=== PATIENT | female | born 1945 | race African-American/Black ===

== ENCOUNTER 2020-01-08 11:22 | Emergency (ER) | payer MEDICARE ==
[~2020-01-08] VITALS: Ht 167.6 cm; Wt 104.3 kg
--- NOTE | 2020-01-08 11:55 | Emergency Department Note ---
History of Present Illnes History of Present Illness Chief Complaint: General Medicine Complaints History of Present Illness This is a 74 year old female, who denies any significant past medical history, who presents with a 6-8 week history of a rash of the anterior aspect of the left lower extremity, above the ankle, that is pruritic, weeping, and seems to be spreading. This is the first medical care that patient has sought for this rash. She does not have a PCP. She has been using triple antibiotic ointment on the rash, and "just keeping it clean and dry." She denies any fever, chills, nausea, or vomiting. 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: No Onset (how long ago): week(s) (8) Location: LLE Quality: pruritic, painful Radiation: Reports non-radiation Severity: moderate Onset quality: gradual Duration (how long): week(s) (8) Timing of current episode: constant Progression: worsening (seems to be spreading) Chronicity: new Context: Denies recent illness, Denies new medications Relieving factors: none Exacerbating factors: none Associated symptoms: Denies fever/chills, Denies nausea/vomiting Treatments prior to arrival: other (OTC antibiotic ointment) Past Medical/Family History Physician Review I have reviewed the patient's past medical and family history. Any updates have been documented here. Past Medical History Recent Fever: No Clinical Suspicion of Infectio: Yes (LLE skin infection;) Past Medical History: None (Pt did not want to provide ANY PMH, "I'm only here for my rash, and don't want treatment for anything else.") Past Surgical History: None Social History Smoking Cessation: Never Smoker Alcohol Use: None Any Illegal Drug Use: No TB Exposure/Symptoms: No Physically hurt or threatened: No Family History Family history of heart diseas: No Other Any Pre-Existing Lines (PICC,: No Is patient up to date on immun: No Review of Systems Review of Systems Constitutional: Denies chills, Denies fever EENTM: Reports no symptoms Cardiovascular: Reports no symptoms Respiratory: Reports no symptoms Gastrointestinal: Reports no symptoms Musculoskeletal: Reports no symptoms Integumentary: Reports change in color (mild erythema of LLE), Reports rash (LLE) Neurological: Reports no symptoms Hematological/Lymphatic: Reports no symptoms Review of other systems: All other systems negative Physical Exam Related Data Vital signs reviewed: Yes Physical Exam CONSTITUTIONAL Constitutional: Present well-developed, Present well-nourished, Present obese; Absent distressed, Absent ill appearing HENT HENT: Present normocephalic, Present atraumatic, Present oropharynx clear/moist, Present nose normal HENT L/R: Present left ext ear normal, Present right ext ear normal EYES NECK Neck: Present ROM normal PULMONARY Pulmonary: Present effort normal, Present breath sounds normal CARDIOVASCULAR Cardiovascular: Present regular rhythm, Present heart sounds normal, Present capillary refill normal, Present normal rate; Absent murmur GASTROINTESTINAL GENITOURINARY Genitourinary: Present exam deferred SKIN Skin: Present warm, Present dry, Present erythema (mild warmth and erythema of anterior aspect of LLE;), Present rash (dry, scaly patches on anterior aspect of LLE, with some excoriations and crusting; ) MUSCULOSKELETAL Musculoskeletal: Present ROM normal NEUROLOGICAL Neurological: Present alert, Present oriented x 3, Present no gross motor or sensory deficits PSYCHOLOGICAL Psychological: Present mood/affect normal, Present judgement normal Assessment & Plan Medical Decision Making MDM - Take ALL antibiotics. - AFTER you have completed all of the antibiotics, you may apply the cream that was prescribed today (Triamcinolone) to the rash on the left leg, twice daily. - For the itching, you may take Cetirizine/Zyrtec 10 mg - 1 tab daily, as needed, and/or Benadryl 25 mg - 1 tab every 6 hours, as needed. - Follow-up with Dermatology, if your symptoms persist, despite full treatment. - Follow-up sooner, if the rash is worsening, you develop fever, or if the left leg becomes red and swollen. Assessment & Plan Final Impression: (1) Cellulitis of leg, left (2) Dermatitis of lower extremity (3) Elevated blood pressure reading without diagnosis of hypertension Depart Disposition: HOME, SELF-skilled nursing Meds Active Scripts Triamcinolone Acet (TRIAMCINOLONE ACETONIDE) 15 Gm Cr, 1 APPLIC TOP BID for rash and itching, #80 G 0 Refills Apply a thin layer to rash on the left lower extremity bid, after you have completed the antibiotics. Prov:FLORIAN CLINTON MD 01/08/20 Cephalexin (CEPHALEXIN) 500 Mg Capsule, 500 MG PO TID for infection for 10 Days, #30 CAP 0 Refills Take ALL antibiotics. Prov:FLORIAN CLINTON MD 01/08/20 FLORIAN CLINTON MD Jan 08, 2020 11:55
[2020-01-08] MEDS ORDERED: CEPHALEXIN500 MG PO (12:35)
[2020-01-08] MEDS ORDERED: TRIAMCINOLONE A15 G1 TOP (12:39)
[2020-01-08 13:26] VITALS: BP 186/85
== END 2020-01-08 13:41 | disposition home or self-care (01) ==
LOC: FSED 11:52
DX: L03.116 Cellulitis of left lower limb (principal); L30.9 Dermatitis, unspecified; R03.0 Elevated blood-pressure reading, without diagnosis of hypertension
CPT/HCPCS: 99283